=== PATIENT | male | born 1975 ===

== ENCOUNTER 2018-03-22 05:03 | Emergency (ER) | payer BC, OTHER ==
[~2018-03-22] VITALS: Ht 180.3 cm; Wt 103.0 kg
[~2018-03-22 05:03] MED LIST: INSULIN
[2018-03-22 08:44] LABS: Basophils # (auto) 0.1 uL; Basophils % (auto) 0.5 % (0.0-2.0); Eosinophils # (auto) 0.2 uL; Eosinophils % (auto) 1.5 % (0.0-7.0); Hematocrit 45.8 % (41.0-53.0); Hemoglobin 16.1 g/dL (13.5-17.5); Lymphocytes # (auto) 2.6 uL; Lymphocytes % (auto) 18.8 % (10.0-50.0); Mean Corpuscular Hemoglobin 29.6 pg (28.0-32.0); Mean Corpuscular Hgb Conc. 35.1 g/dL (32.0-36.0); Mean Corpuscular Volume 84.3 fL (80.0-100.0); Monocytes # (auto) 1.4 uL; Monocytes % (auto) 9.9 % (0.0-12.0); Neutrophils # (auto) 9.7 uL; Neutrophils % (auto) 69.3 % (37.0-80.0); Nucleated Red Blood Cells % 0.1 %; Platelet Count (auto) 264 10^3/uL (140-450); Red Blood Cells 5.43 10^6/uL (4.5-5.90); Red Cell Distribution Width 13.1 % (11.8-14.3)
[2018-03-22 08:55] LABS: Albumin 3.3 g/dL (3.4-5.0); Calcium 8.6 mg/dL (8.5-10.1); Magnesium 2.1 mg/dL (1.6-2.6); Potassium 3.9 mmol/L (3.5-5.1)
[2018-03-22 08:57] LABS: BUN/Creatinine Ratio 15.2
[2018-03-22 09:00] LABS: Bilirubin, Total 0.8 mg/dL (0.2-1.0); Total Protein 8.1 g/dL (6.4-8.2)
[2018-03-22 10:00] VITALS: BP 135/81
== END 2018-03-22 10:01 | disposition home or self-care (01) ==
LOC: ER 05:03
DX: L03.312 Cellulitis of back [any part except buttock and flank] (principal); M79.605 Pain in left leg; R19.7 Diarrhea, unspecified; R51 Headache; E11.9 Type 2 diabetes mellitus without complications; F12.90 Cannabis use, unspecified, uncomplicated; I10 Essential (primary) hypertension; F17.210 Nicotine dependence, cigarettes, uncomplicated; Z88.2 Allergy status to sulfonamides
CPT/HCPCS: 36415; 80053; 83735; 85025; 85379

== ENCOUNTER 2018-03-24 13:00 | Emergency (ER) | payer OTHER ==
[~2018-03-24] VITALS: Ht 180.3 cm; Wt 103.0 kg
[2018-03-24 13:00] VITALS: BP 171/107
[2018-03-24] MEDS ORDERED: KETOROLAC TROMETH 60MG/2ML VIAL IM ONE (15:00)
== END 2018-03-24 15:21 | disposition home or self-care (01) ==
LOC: ER 13:07 → EDUNIT# 13:07 → ER 15:21
DX: D17.1 Benign lipomatous neoplasm of skin and subcutaneous tissue of trunk (principal); F17.210 Nicotine dependence, cigarettes, uncomplicated; F12.10 Cannabis abuse, uncomplicated; F15.10 Other stimulant abuse, uncomplicated; Z88.2 Allergy status to sulfonamides
CPT/HCPCS: 96372; 99283; J1885